=== PATIENT | female | born 1940 | race Asian ===

== ENCOUNTER → 2017-10-07 | Outpatient (CLI) | payer MEDICARE ==
[~2017-10-07] MED LIST: GADOBUTROL 7.5 MMOL/7.5 ML PFS ONE
== END ==
LOC: CFH 09:11
PROVIDERS: ATTEND Radiology Radiation Oncology
DX: D32.9 Benign neoplasm of meninges, unspecified (principal); I63.9 Cerebral infarction, unspecified; G93.89 Other specified disorders of brain
CPT/HCPCS: 70551; 82565; A9585

== ENCOUNTER → 2017-10-21 | Outpatient (CLI) | payer MEDICARE | END | disposition home or self-care (01) | LOC: ROC 07:29 | PROVIDERS: ATTEND Radiology Radiation Oncology | DX: D32.0 Benign neoplasm of cerebral meninges (principal) | CPT/HCPCS: G0463 ==

== ENCOUNTER 2019-07-20 19:03 | Emergency (ER) | payer MEDICARE ==
[~2019-07-20] VITALS: Ht 154.9 cm; Wt 68.0 kg
[2019-07-20 19:10] VITALS: BP 149/56
--- NOTE | 2019-07-20 19:32 | NUR ---
PT C/O COUGH X 1 MONTH, HAS HAD MULTIPLE DOCTOR VISITS, WAS AT [facility] YESTERDAY. PT ABLE TO SPEAK IN COMPLETE SENTENCES W/OUT COUGHING.
[2019-07-20] MEDS ORDERED: [UNRECOGNIZED DRUG - CODE] PO (19:37)
[2019-07-20] MEDS ORDERED: VITAMIN D3 (19:37)
[2019-07-20] MEDS ORDERED: NIFE60TA13 PO (19:37)
[2019-07-20 20:20] LABS: BASOPHILS # (AUTO) 0.06 x10^3/uL (0-0.1); BASOPHILS % (AUTO) 1 % (0-1); EOSINOPHILS # (AUTO) 0.11 x10^3/uL (0-0.4); EOSINOPHILS % (AUTO) 1 % (1-7); LYMPHOCYTES % (AUTO) 28 % (22-44); MD NO; MEAN CORPUSCULAR HGB CONC 33.4 g/dL (32.4-35.8); MEAN CORPUSCULAR VOLUME 83.7 fL (80-100); MEAN PLATELET VOLUME 9.6 fL (7.4-10.4); MONOCYTES # (AUTO) 0.44 x10^3/uL (0.2-0.8); MONOCYTES % (AUTO) 6 % (2-9); NEUTROPHILS # (AUTO) 5.12 x10^3/uL (1.8-6.8); NEUTROPHILS % (AUTO) 65 % (42-75); PLATELET COUNT 204 x10^3/uL (130-400); RED BLOOD COUNT 4.99 x10^6/uL (3.82-5.3); RED CELL DISTRIBUTION WIDTH 13.6 % (9.6-15.2)
[2019-07-20 20:29] LABS: ALBUMIN 4.2 g/dL (3.4-5.0); ANION GAP 9 mmol/L (5-15); CALCIUM 9.6 mg/dL (8.5-10.1); CHLORIDE 105 mmol/L (98-107); CREATININE 1.06 mg/dL (0.55-1.02)
== END 2019-07-20 21:08 | disposition home or self-care (01) ==
LOC: ED 21:02
DX: B34.9 Viral infection, unspecified (principal); I10 Essential (primary) hypertension
CPT/HCPCS: 36415; 71046; 80048; 82040; 85025; 99284

== ENCOUNTER 2019-07-30 12:47 | Emergency (ER) | payer MEDICARE ==
[~2019-07-30] VITALS: Ht 152.4 cm; Wt 66.7 kg
[~2019-07-30 12:47] MED LIST changes: -GADOBUTROL 7.5 MMOL/7.5 ML PFS ONE; +NIFE60TA13 PO; +VITAMIN D3; +[UNRECOGNIZED DRUG - CODE] PO
--- NOTE | 2019-07-30 13:20 | NUR ---
Pt ambulated independently w/ a steady gait from lobby to ED room 19 and then to the restroom.
--- NOTE | 2019-07-30 13:43 | NUR ---
Pt changed into gown, sitting on Dr Jose L guerin at bedside performing assessment and discussing plan of care. Pt given blanket for comfort and call light within reach. NAD, denies additional needs at this time, WCTM.
[2019-07-30] MEDS ORDERED: morphine SULFATE 10 MG/ML, 1ML ONE (13:55)
[2019-07-30] MEDS ORDERED: ONDANSETRON 2MG/ML, 2ML ONE (13:55)
[2019-07-30] MEDS ORDERED: morphine SULFATE 10 MG/ML, 1ML IVPush ONE (14:00)
[2019-07-30] MEDS ORDERED: ONDANSETRON 2MG/ML, 2ML IVPush ONE (14:00)
[2019-07-30 14:31] LABS: BASOPHILS # (AUTO) 0.05 x10^3/uL (0-0.1); BASOPHILS % (AUTO) 1 % (0-1); EOSINOPHILS % (AUTO) 1 % (1-7); LYMPHOCYTES # (AUTO) 2.51 x10^3/uL (1-3.4); LYMPHOCYTES % (AUTO) 31 % (22-44); MD NO; MEAN CORPUSCULAR HEMOGLOBIN 27.8 pg (27.0-34.8); MEAN CORPUSCULAR VOLUME 84.1 fL (80-100); MEAN PLATELET VOLUME 9.7 fL (7.4-10.4); MONOCYTES # (AUTO) 0.47 x10^3/uL (0.2-0.8); MONOCYTES % (AUTO) 6 % (2-9); NEUTROPHILS # (AUTO) 4.97 x10^3/uL (1.8-6.8); NEUTROPHILS % (AUTO) 61 % (42-75); PLATELET COUNT 203 x10^3/uL (130-400); RED BLOOD COUNT 5.01 x10^6/uL (3.82-5.3); RED CELL DISTRIBUTION WIDTH 13.9 % (9.6-15.2)
--- NOTE | 2019-07-30 14:35 | NUR ---
Pt resting in bed, medicated per MAR, given additional warm blankets, US completed, blood sent to lab, pt reports no other needs at this time, pt's at bedside, JACKIE.
[2019-07-30 14:39] LABS: ALANINE AMINOTRANSFERASE 60 U/L (12-78); ALBUMIN 4.3 g/dL (3.4-5.0); ANION GAP 9 mmol/L (5-15); CHLORIDE 105 mmol/L (98-107); CREATININE 0.99 mg/dL (0.55-1.02)
[2019-07-30 14:43] LABS: ALKALINE PHOSPHATASE 59 U/L (45-117); BILIRUBIN,TOTAL 0.5 mg/dL (0.2-1.0); TOTAL PROTEIN 7.8 g/dL (6.4-8.2); TROPONIN I < 0.015 ng/mL (0.000-0.045)
--- NOTE | 2019-07-30 15:00 | NUR ---
Late entry: Pt sitting on gurney. Pt call light within reach, NAD, denies additional needs at this time, at bedside, WCTM.
--- NOTE | 2019-07-30 15:50 | NUR ---
Pt to CT via apoorva. MEAGAN.
--- NOTE | 2019-07-30 15:55 | NUR ---
Declan mcgarry in EDM - 07/30/19 at 1558 by FERN Pt sitting on gurney. Pt call light within reach, NAD, denies additional needs at this time, at bedside, JACKIE.
--- NOTE | 2019-07-30 16:19 | NUR ---
pt back from CT. pt resting in room on gurney, call light within reach, at bedside, NAD, denies additional needs, WCTM.
--- NOTE | 2019-07-30 17:13 | NUR ---
Pt resting in gurney, even and unlabored respirations, NAD, at bedside, denies additional needs at this time. WCTM
--- NOTE | 2019-07-30 17:14 | NUR ---
Dr Domingo at bedside rechecking and discussing medications.
[2019-07-30 18:24] VITALS: BP 112/47
== END 2019-07-30 18:29 | disposition home or self-care (01) ==
LOC: ED 16:20
DX: R51 Headache (principal); R60.0 Localized edema
CPT/HCPCS: 36415; 70450; 80053; 84484; 85025; 93005; 93970; 96374; 96375; 99285; J2270; J2405

== ENCOUNTER 2020-02-22 11:04 | Inpatient (IN) | payer MEDICARE ==
[~2020-02-22] VITALS: Ht 152.4 cm; Wt 64.7 kg
--- NOTE | 2020-02-22 12:04 | NUR ---
PT SITTING UPRIGHT ON GURNEY, PT STATES DIZZINESS IS NOT PRESENT CURRENTLY WHILE SITTING STILL. PT DENIES ANY PAIN OR OTHER NEEDS AT THIS TIME. CALL LIGHT WITHIN REACH, FALL PRECAUTIONS IN PLACE.
[2020-02-22 12:10] LABS: BASOPHILS # (AUTO) 0.06 x10^3/uL (0-0.1); BASOPHILS % (AUTO) 1 % (0-1); EOSINOPHILS # (AUTO) 0.04 x10^3/uL (0-0.4); EOSINOPHILS % (AUTO) 1 % (1-7); LYMPHOCYTES # (AUTO) 2.16 x10^3/uL (1-3.4); LYMPHOCYTES % (AUTO) 30 % (22-44); MD NO; MEAN CORPUSCULAR HEMOGLOBIN 27.3 pg (27.0-34.8); MEAN CORPUSCULAR HGB CONC 32.2 g/dL (32.4-35.8); MEAN PLATELET VOLUME 10.1 fL (7.4-10.4); MONOCYTES # (AUTO) 0.61 x10^3/uL (0.2-0.8); MONOCYTES % (AUTO) 9 % (2-9); NEUTROPHILS % (AUTO) 60 % (42-75); PLATELET COUNT 195 x10^3/uL (130-400); RED CELL DISTRIBUTION WIDTH 13.9 % (9.6-15.2)
[2020-02-22 12:21] LABS: ALBUMIN 3.8 g/dL (3.4-5.0); ANION GAP 4 mmol/L (5-15); CHLORIDE 113 mmol/L (98-107)
[2020-02-22 12:25] LABS: ALANINE AMINOTRANSFERASE 38 U/L (12-78); ALKALINE PHOSPHATASE 63 U/L (45-117); BILIRUBIN,TOTAL 0.6 mg/dL (0.2-1.0); CREATININE 0.83 mg/dL (0.55-1.02); TOTAL PROTEIN 7.2 g/dL (6.4-8.2)
--- NOTE | 2020-02-22 12:52 | NUR ---
URINE SENT TO LAB
[2020-02-22 12:58] LABS: MICROSCOPIC AUTO
[2020-02-22] MEDS ORDERED: CARV12.52 PO (13:38)
--- NOTE | 2020-02-22 13:52 | NUR ---
Pt to be admitted to TELE 2, room 404-2. Report called to JOSE MARTIN.
[2020-02-22 14:26] VITALS: BP 178/92
[2020-02-22] MEDS ORDERED: hydrALAzine 20 MG/ML, 1ML IVPush PRN (15:00)
[2020-02-22] MEDS ORDERED: ACETAMINOPHEN 325 MG TABLET PO PRN (15:00)
[2020-02-22] MEDS ORDERED: BUTALB/APAP/CAFFEINE 50MG/325MG/40MG PO PRN (15:00)
[2020-02-22] MEDS ORDERED: GABAPENTIN 300 MG CAPSULE PO PRN (15:00)
[2020-02-22] MEDS ORDERED: GUAIFENESIN/DM 200-20MG, 10ML UDC PO PRN (15:00)
[2020-02-22] MEDS ORDERED: MELATONIN 5 MG TABLET PO PRN (15:00)
[2020-02-22] MEDS ORDERED: LABETALOL 5MG/ML, 20ML IVPush PRN (15:00)
[2020-02-22] MEDS ORDERED: BACLOFEN 10 MG TABLET PO PRN (15:00)
[2020-02-22] MEDS ORDERED: ENALAPRILAT 1.25 MG/ML, 2ML IV PRN (15:30)
[2020-02-22 15:43] VITALS: BP 153/73
[2020-02-22] MEDS ORDERED: ENOXAPARIN 40 MG/0.4 ML SQ SCH (16:00)
[2020-02-22 18:59] VITALS: BP 160/68
[2020-02-22] MEDS: CARVEDILOL 12.5 MG TABLET PO SCH (21:00)
[2020-02-23 00:57] VITALS: BP 157/62
[2020-02-23 04:36] LABS: BASOPHILS # (AUTO) 0.03 x10^3/uL (0-0.1); BASOPHILS % (AUTO) 0 % (0-1); EOSINOPHILS # (AUTO) 0.05 x10^3/uL (0-0.4); EOSINOPHILS % (AUTO) 1 % (1-7); LYMPHOCYTES % (AUTO) 37 % (22-44); MD NO; MEAN CORPUSCULAR HEMOGLOBIN 27.1 pg (27.0-34.8); MEAN PLATELET VOLUME 9.7 fL (7.4-10.4); MONOCYTES # (AUTO) 0.48 x10^3/uL (0.2-0.8); MONOCYTES % (AUTO) 7 % (2-9); NEUTROPHILS # (AUTO) 3.76 x10^3/uL (1.8-6.8); NEUTROPHILS % (AUTO) 55 % (42-75); PLATELET COUNT 182 x10^3/uL (130-400); RED BLOOD COUNT 4.99 x10^6/uL (3.82-5.3)
[2020-02-23 04:47] LABS: ALBUMIN 3.7 g/dL (3.4-5.0); ANION GAP 3 mmol/L (5-15); CALCIUM 9.1 mg/dL (8.5-10.1); CHLORIDE 110 mmol/L (98-107)
[2020-02-23 04:50] LABS: ALANINE AMINOTRANSFERASE 38 U/L (12-78); ALKALINE PHOSPHATASE 62 U/L (45-117); BILIRUBIN,TOTAL 0.6 mg/dL (0.2-1.0); CREATININE 1.05 mg/dL (0.55-1.02); TOTAL PROTEIN 7.1 g/dL (6.4-8.2)
[2020-02-23 07:03] VITALS: BP 138/73
[2020-02-23] MEDS ORDERED: ASPI-515 PO (08:36)
[2020-02-23] MEDS: CARVEDILOL 12.5 MG TABLET PO SCH (09:00)
[2020-02-23] MEDS ORDERED: SENNA/DOCUSATE TABLET PO SCH (09:00)
[2020-02-23 13:09] VITALS: BP 119/75
== END 2020-02-23 14:29 | disposition home or self-care (01) | DRG 305 ==
LOC: ED 13:32 → EDIP 13:42 → 4WST 14:19 → DCLOUNGE 02-23 14:23
PROVIDERS: ADMIT Internal Medicine; ATTEND Family Medicine
DX: I16.0 Hypertensive urgency (principal); N39.0 Urinary tract infection, site not specified; Z91.041 Radiographic dye allergy status; Z85.89 Personal history of malignant neoplasm of other organs and systems; Z90.49 Acquired absence of other specified parts of digestive tract
CPT/HCPCS: 36415; 70450; 70551; 80053; 81001; 83735; 85025; 87086; 93005; 99285; G0378; J1650

== ENCOUNTER 2020-03-08 06:27 | Emergency (ER) | payer MEDICARE ==
[~2020-03-08] VITALS: Ht 157.5 cm; Wt 65.7 kg
[~2020-03-08 06:27] MED LIST changes: +ASPI-515 PO; +CARV12.52 PO
--- NOTE | 2020-03-08 06:45 | NUR ---
INITIAL PT CONTACT. PT PRESENTS TO ED C/O RIGHT KNEE PAIN, SWELLING AND DECREASED ROM. PT AND STATE "THIS HAS TO BE CAUSED FROM THE INCREASED DOSE OF THE BLOOD PRESSURE MEDICATION, IT WAS CHANGED A WEEK AGO". PT DENIES ANY RECENT TRAUMA TO THE AREA. UPON FURTHER DISCUSSION WITH THE PT, SHE STATES THAT SHE HAS BEEN EXPERIENCING AND INTERMITTENT COUGH, EXPLAINED "HARD TO CATCH MY BREATH SOMETIMES". PT STATES THIS HAS BEEN OCCURING FOR APPROX 1 WEEK, "MAYBE LONGER". PT DENIES ANY CONTACT WITH COVID+ INDIVIDUALS. RESPIRATIONS UNLABORED AND REGULAR AT THIS TIME. PT SITTING UPRIGHT ON GURNEY, NAD NOTED. AT BEDSIDE. CONTINUOUS PULSE OX AND CARDIAC MONITORING IN PLACE. PT PROVIDED A BLANKET. PT DENIES ANY ADDITIONAL NEEDS AT THIS TIME. CALL LIGHT WITHIN REACH, FALL PRECAUTIONS IN PLACE.
[2020-03-08] MEDS ORDERED: OXYcodone/APAP 5/325MG TABLET ONE (07:08)
[2020-03-08] MEDS ORDERED: OXYcodone/APAP 5/325MG TABLET PO ONE (07:30)
--- NOTE | 2020-03-08 07:41 | NUR ---
PT TO IMAGING.
--- NOTE | 2020-03-08 08:10 | NUR ---
PT RETUNRED FROM IMAGING. RESTING COMFORTABLY IN BED, WATCHING TV WITH AT BEDSIDE. PT STATES "PAIN IS THE SAME, I HAD TO MOVE A LOT FOR THAT XRAY", ERP NOTIFIED. PT DENIES ANY ADDITIONAL NEEDS AT THIS TIME. CALL LIGHT WITHIN REACH, FALL PRECAUTIONS IN PLACE.
[2020-03-08 08:18] LABS: BASOPHILS % (AUTO) 1 % (0-1); EOSINOPHILS % (AUTO) 1 % (1-7); LYMPHOCYTES % (AUTO) 32 % (22-44); MEAN CORPUSCULAR HGB CONC 32.4 g/dL (32.4-35.8); MEAN PLATELET VOLUME 9.5 fL (7.4-10.4); MONOCYTES % (AUTO) 8 % (2-9); NEUTROPHILS % (AUTO) 58 % (42-75); PLATELET COUNT 185 x10^3/uL (130-400); RED BLOOD COUNT 5.08 x10^6/uL (3.82-5.3); RED CELL DISTRIBUTION WIDTH 13.7 % (9.6-15.2)
[2020-03-08 08:20] LABS: MD NO
[2020-03-08 08:30] LABS: ALBUMIN 3.8 g/dL (3.4-5.0); ANION GAP 5 mmol/L (5-15); CALCIUM 9.2 mg/dL (8.5-10.1); CHLORIDE 112 mmol/L (98-107)
[2020-03-08 08:33] LABS: ALANINE AMINOTRANSFERASE 29 U/L (12-78); ALKALINE PHOSPHATASE 65 U/L (45-117); BILIRUBIN,TOTAL 0.6 mg/dL (0.2-1.0); CREATININE 0.92 mg/dL (0.55-1.02); TOTAL PROTEIN 7.3 g/dL (6.4-8.2); TROPONIN I < 0.015 ng/mL (0.000-0.045)
[2020-03-08 08:58] VITALS: BP 144/62
--- NOTE | 2020-03-08 08:59 | NUR ---
PT RESTING COMFORTABLY ON GURNEY WITH EYES CLOSED. NAD NOTED. NO ADDITIONAL NEEDS AT THIS TIME. CALL LIGHT WITHIN REACH, FALL PRECAUTIONS IN PLACE.
--- NOTE | 2020-03-08 09:31 | NUR ---
Patient and spouse given discharge instructions and they have confirmed that they understand the instructions. Patient to d/c desk in wheelchair.
== END 2020-03-08 09:33 | disposition home or self-care (01) ==
LOC: ED 07:06
DX: M17.11 Unilateral primary osteoarthritis, right knee (principal); M25.561 Pain in right knee; R06.00 Dyspnea, unspecified; I10 Essential (primary) hypertension; R00.1 Bradycardia, unspecified; M79.89 Other specified soft tissue disorders
CPT/HCPCS: 36415; 71045; 80053; 83880; 84484; 85025; 93005; 99285

== ENCOUNTER 2020-08-19 11:42 | Emergency (ER) | payer MEDICARE ==
[~2020-08-19] VITALS: Ht 152.4 cm; Wt 66.5 kg
[~2020-08-19 11:42] MED LIST changes: -ASPI-515 PO; +ASPI-963 PO
[2020-08-19 11:45] VITALS: BP 172/52
[2020-08-19 12:40] LABS: BASOPHILS % (AUTO) 1 % (0-1); EOSINOPHILS % (AUTO) 1 % (1-7); LYMPHOCYTES % (AUTO) 35 % (22-44); MD NO; MEAN CORPUSCULAR HEMOGLOBIN 27.9 pg (27.0-34.8); MEAN CORPUSCULAR HGB CONC 33.2 g/dL (32.4-35.8); MEAN PLATELET VOLUME 9.5 fL (7.4-10.4); MONOCYTES % (AUTO) 8 % (2-9); NEUTROPHILS % (AUTO) 55 % (42-75); PLATELET COUNT 183 x10^3/uL (130-400); RED BLOOD COUNT 4.83 x10^6/uL (3.82-5.3); RED CELL DISTRIBUTION WIDTH 13.8 % (9.6-15.2)
[2020-08-19 12:49] LABS: ANION GAP 8 mmol/L (5-15); CALCIUM 8.7 mg/dL (8.5-10.1); CHLORIDE 110 mmol/L (98-107); CREATININE 0.91 mg/dL (0.55-1.02)
[2020-08-19 12:52] LABS: TROPONIN I < 0.015 ng/mL (0.000-0.045)
--- NOTE | 2020-08-19 13:19 | NUR ---
Pt noted ambulatory to room from lobby with motor vehicle technician and has already been seen by PA in triage with lab and radiology results reviewed at this time. Pt with steady gait, able to speak in full sentences, and positive non-productive dry cough.
== END 2020-08-19 14:25 | disposition home or self-care (01) ==
LOC: ED 14:19
DX: J30.2 Other seasonal allergic rhinitis (principal); R00.1 Bradycardia, unspecified; I10 Essential (primary) hypertension
CPT/HCPCS: 36415; 71045; 80048; 82040; 84484; 85025; 93005; 99285

== ENCOUNTER 2020-10-06 11:45 | Emergency (ER) | payer MEDICARE ==
[~2020-10-06] VITALS: Ht 149.9 cm; Wt 66.2 kg
--- NOTE | 2020-10-06 12:10 | NUR ---
PT C/O INTERMITTENT LEFT SHOULDER PAIN. PT DENIES CP, SOB, N/V, OR HEADACHE. PT STATES IT "COMES AND GOES" AND MOVEMENT CAN MAKE IT WORSE.
--- NOTE | 2020-10-06 12:12 | NUR ---
PT OFF THE FLOOR TO XRAY
[2020-10-06] MEDS ORDERED: CYCLOBENZAPRINE 10 MG TABLET ONE (12:56)
[2020-10-06 13:00] VITALS: BP 142/60
[2020-10-06] MEDS ORDERED: CYCLOBENZAPRINE 10 MG TABLET PO ONE (13:00)
--- NOTE | 2020-10-06 13:39 | NUR ---
Patient given discharge instructions and they have confirmed that they understand the instructions. Patient ambulatory with steady gait.
== END 2020-10-06 13:40 | disposition home or self-care (01) ==
LOC: ED 13:27
DX: G89.11 Acute pain due to trauma (principal); M25.512 Pain in left shoulder; I10 Essential (primary) hypertension; W01.0XXA Fall on same level from slipping, tripping and stumbling without subsequent striking against object, initial encounter; Y93.89 Activity, other specified; Y92.009 Unspecified place in unspecified non-institutional (private) residence as the place of occurrence of the external cause; Y99.8 Other external cause status
CPT/HCPCS: 99283

== ENCOUNTER → 2020-10-17 | Outpatient (CLI) | payer MEDICARE | END | disposition home or self-care (01) | LOC: CFH 09:58 | PROVIDERS: ATTEND Radiology Radiation Oncology | DX: R94.02 Abnormal brain scan (principal); D32.0 Benign neoplasm of cerebral meninges | CPT/HCPCS: 70551 ==

== ENCOUNTER → 2020-10-31 | Outpatient (CLI) | payer MEDICARE | END | disposition home or self-care (01) | LOC: ROC 11:00 | PROVIDERS: ATTEND Radiology Radiation Oncology | DX: Z08 Encounter for follow-up examination after completed treatment for malignant neoplasm (principal); D32.0 Benign neoplasm of cerebral meninges; I10 Essential (primary) hypertension | CPT/HCPCS: G0463 ==